=== PATIENT | female | born 1970 | race Caucasian/White ===

== ENCOUNTER 2020-05-12 23:25 | Emergency (ER) | payer BC ==
[2020-05-12] MEDS: Albuterol 0.083% 2.5 MG/3 ML Neb Soln NEB ONE (23:58)
--- NOTE | 2020-05-13 00:03 | EDM.PDOC ---
ED HPI GENERAL MEDICAL PROBLEM - General Chief Complaint: Respiratory Problem Stated Complaint: sob Time Seen by Provider: 05/12/20 23:40 Source of Information: Reports: Patient History Limitations: Reports: No Limitations - History of Present Illness INITIAL COMMENTS - FREE TEXT/NARRATIVE: Pt presents with feeling that she can't get a deep breathe. Started about 2230 this evening. She had been spraying insect spray onto her trees earlier in the evening about 2030 and it was drifting on to her. She states it was malathion. Poison control was contacted and they did not feel that it would cause any issues other than possible irritant and they recommended an albuterol treatment. She denies any fever, cough or pain. No other concerns. Has used this product previously without a problem but was spraying it overhead and it drifted onto her this time. Onset: Today Location: Reports: Chest - Related Data Allergies Allergy/AdvReac Type Severity Reaction Status Date / Time No Known Allergies Allergy Verified 05/12/20 23:28 Home Meds: Home Meds Levothyroxine 1 tab PO DAILY 05/12/20 [History] Social & Family History - Tobacco Use Smoking Status *Q: Never Smoker - Living Situation & Occupation Living situation: Reports: , with Family Occupation: Employed ED ROS GENERAL - Review of Systems Review Of Systems: See Below Constitutional: Denies: Fever, Chills, Weakness HEENT: Reports: No Symptoms Respiratory: Reports: Shortness of Breath (see HPI) Cardiovascular: Reports: No Symptoms Endocrine: Reports: No Symptoms GI/Abdominal: Reports: No Symptoms Musculoskeletal: Reports: No Symptoms Skin: Reports: Rash (has rash to her arms which she states that she got at the [facility] previously.) Neurological: Reports: No Symptoms ED EXAM, GENERAL - Physical Exam Exam: See Below Exam Limited By: No Limitations General Appearance: Alert, WD/WN, No Apparent Distress Ears: Normal External Exam, Normal Canal Nose: Normal Inspection Throat/Mouth: Normal Inspection, Normal Oropharynx Head: Atraumatic, Normocephalic Neck: Normal Inspection, Supple, Non-Tender Respiratory/Chest: No Respiratory Distress, Lungs Clear, Normal Breath Sounds, No Accessory Muscle Use, Chest Non-Tender Cardiovascular: Normal Peripheral Pulses, Regular Rate, Rhythm GI/Abdominal: Normal Bowel Sounds, Soft Extremities: Normal Inspection, No Pedal Edema Neurological: Alert, Oriented Skin Exam: Warm, Dry, Intact Course - Orders/Labs/Meds Orders: Active Orders 24 hr Category Date Time Status RT Aerosol Therapy [RC] ASDIRECTED Care 05/12/20 23:43 Active CBC WITH AUTO DIFF [HEME] Stat Lab 05/12/20 23:38 Ordered Meds: Medications Discontinued Medications Generic Name Dose Route Start Last Admin Trade Name Jamesq PRN Reason Stop Dose Admin Albuterol 2.5 mg 05/12/20 23:43 Proventil Neb Soln NEB 05/12/20 23:44 ONETIME ONE - Re-Assessments/Exams Free Text/Narrative Re-Assessment/Exam: 05/13/20 00:14 discussed lab results and recommendations from poison control. She does feel better after nebulizer treatment. Reassurance given. Sats remain 99% on RA Departure - Departure Time of Disposition: 00:14 Disposition: Home, Self-Care 01 Condition: Good Clinical Impression: SOB (shortness of breath) - Discharge Information *PRESCRIPTION DRUG MONITORING PROGRAM REVIEWED*: Not Applicable *COPY OF PRESCRIPTION DRUG MONITORING REPORT IN PATIENT VLADIMIR: Not Applicable Additional Instructions: recheck if not improved - Problem List & Annotations (1) SOB (shortness of breath) SNOMED Code(s): 161050242 Code(s): R06.02 - SHORTNESS OF BREATH Status: Acute - Problem List Review Problem List Initiated/Reviewed/Updated: Yes - My Orders Last 24 Hours: My Active Orders 05/12/20 23:38 CBC WITH AUTO DIFF [HEME] Stat 05/12/20 23:43 RT Aerosol Therapy [RC] ASDIRECTED - Assessment/Plan Last 24 Hours: My Active Orders 05/12/20 23:38 CBC WITH AUTO DIFF [HEME] Stat 05/12/20 23:43 RT Aerosol Therapy [RC] ASDIRECTED Assessment:: please refer to the nurses record for past medical, family and social history.
== END 2020-05-13 00:25 | disposition home or self-care (01) ==
LOC: CC.ED 23:25
DX: R06.02 Shortness of breath (principal)
CPT/HCPCS: 36415; 85025; 94640; 99285-25; J7613-GY

== ENCOUNTER 2021-11-18 10:23 | Emergency (ER) | payer BC ==
--- NOTE | 2021-11-18 11:24 | EDM.PDOC ---
ED HPI GENERAL MEDICAL PROBLEM - General Chief Complaint: General Stated Complaint: sore throat, chills Time Seen by Provider: 11/18/21 11:00 Source of Information: Reports: Patient History Limitations: Reports: No Limitations - History of Present Illness INITIAL COMMENTS - FREE TEXT/NARRATIVE: This is a 51-year-old female patient that presented with her son to the emergency department. Patient developed sore throat, ear pain, generalized aches that started this morning. States that she just is not feeling well. Denies fever but reports feeling chills. Mild symptoms started yesterday and worsened this morning. Unknown contact with anybody with influenza or Covid. Denies nausea vomiting or diarrhea. Onset: Today - Related Data Allergies Allergy/AdvReac Type Severity Reaction Status Date / Time No Known Allergies Allergy Verified 05/12/20 23:28 Home Meds: Home Meds Levothyroxine 1 tab PO DAILY 05/12/20 [History] Venlafaxine [Effexor] 25 mg PO DAILY 11/18/21 [History] Past Medical History Psychiatric History: Reports: Anxiety - Past Surgical History HEENT Surgical History: Reports: Tonsillectomy Female Surgical History: Reports: Breast Implant Endocrine Surgical History: Reports: Thyroidectomy Social & Family History - Family History Family Medical History: No Pertinent Family History - Tobacco Use Tobacco Use Status *Q: Never Tobacco User - Caffeine Use Caffeine Use: Reports: None - Recreational Drug Use Recreational Drug Use: No - Living Situation & Occupation Living situation: Reports: , with Family Occupation: Employed ED ROS GENERAL - Review of Systems Review Of Systems: See Below Constitutional: Reports: Chills. Denies: Fever HEENT: Reports: Throat Pain, Other (Congestion) Respiratory: Reports: Cough. Denies: Shortness of Breath Cardiovascular: Denies: Chest Pain, Dyspnea on Exertion, Lightheadedness Endocrine: Reports: Fatigue GI/Abdominal: Denies: Abdominal Pain, Diarrhea, Nausea, Vomiting : Reports: No Symptoms Musculoskeletal: Reports: No Symptoms Skin: Reports: No Symptoms Neurological: Reports: No Symptoms Psychiatric: Reports: No Symptoms Hematologic/Lymphatic: Reports: No Symptoms Immunologic: Reports: No Symptoms ED EXAM, GENERAL - Physical Exam Exam: See Below Exam Limited By: No Limitations General Appearance: Alert, WD/WN, Mild Distress Ears: Normal External Exam, Normal Canal, Hearing Grossly Normal, Normal TMs Nose: Normal Inspection Throat/Mouth: Normal Inspection, Normal Lips, Normal Oropharynx, Normal Voice, No Airway Compromise Head: Atraumatic Neck: Normal Inspection, Supple, Non-Tender Respiratory/Chest: No Respiratory Distress, Lungs Clear Cardiovascular: Regular Rate, Rhythm, No Gallop, No Murmur, No Rub GI/Abdominal: No Distention (Female) Exam: Deferred Rectal (Female) Exam: Deferred Extremities: Normal Inspection, No Pedal Edema Neurological: Alert, Oriented, Normal Gait, No Motor/Sensory Deficits Psychiatric: Normal Affect, Normal Mood Skin Exam: Warm, Dry, Intact, Normal Color Lymphatic: No Adenopathy Course - Vital Signs Last Recorded V/S: Last Vital Signs Temp 98 F 11/18/21 10:25 Pulse 110 H 11/18/21 10:25 Resp 16 11/18/21 10:25 BP 123/86 11/18/21 10:25 Pulse Ox 97 11/18/21 10:25 - Orders/Labs/Meds Orders: Active Orders 24 hr Category Date Time Status Isolation [COMM] Routine Oth 11/18/21 10:33 Active Labs: Laboratory Tests 11/18/21 Range/Units 10:33 SARS CoV-2 RNA Rapid PRATIBHA Positive H (NEGATIVE) - Re-Assessments/Exams Free Text/Narrative Re-Assessment/Exam: This is a 51-year-old female that presents to the emergency department with onset of sore throat and generally not feeling well. An influenza and Covid test were collected in the emergency department. Influenza test is negative Covid test is positive. Based on these positive findings discussed treatment options with the patient. Patient does not qualify for monoclonal antibodies. Discussed symptomatic management to be done at home. Patient should stay well- hydrated and drink plenty of fluids. Should stay moving at home when able between times of rest. May take Tylenol and ibuprofen as needed for fever or discomfort. May continue [id number] Mucinex or DayQuil if it is helping her symptoms. She should follow-up or return to the emergency department if she develops significant shortness of breath. She may also call if she has any questions or concerns. Departure - Departure Time of Disposition: 11:19 Disposition: Home, Self-Care 01 Condition: Good Clinical Impression: COVID-19 - Discharge Information *PRESCRIPTION DRUG MONITORING PROGRAM REVIEWED*: Not Applicable *COPY OF PRESCRIPTION DRUG MONITORING REPORT IN PATIENT VLADIMIR: Not Applicable Instructions: COVID-19 Frequently Asked Questions, Symptoms of COVID-19 - [facility] (01/16/2021), COVID-19: What to Do If You Are Sick- [facility] (02/08/2021) Referrals: Tamir Michel MD [Primary Care Provider] - Forms: ED Department Discharge Additional Instructions: 1. Lab test confirmed COVID-19. Based on guidelines should quarantine at home. Based on the health history you would not qualify for monoclonal antibodies. 2. Stay well-hydrated by drinking plenty of fluids. 3. May take Tylenol and ibuprofen for any fever or discomfort. 4. May continue [id number] Mucinex or DayQuil if you believe it is beneficial in helping your symptoms. 5. Follow-up or return to the ER if having significant shortness of breath. 6. You may call if you have any questions or concerns. Sepsis Event Note (ED) - Evaluation Sepsis Screening Result: No Definite Risk - Focused Exam Vital Signs: Vital Signs Temp Pulse Resp BP Pulse Ox 11/18/21 10:25 98 F 110 H 16 123/86 97 - My Orders Last 24 Hours: My Active Orders 11/18/21 10:33 Isolation [COMM] Routine - Assessment/Plan Last 24 Hours: My Active Orders 11/18/21 10:33 Isolation [COMM] Routine
== END 2021-11-18 11:39 | disposition home or self-care (01) ==
LOC: CC.ED 10:23
DX: U07.1 COVID-19 (principal); Z79.899 Other long term (current) drug therapy
CPT/HCPCS: 87804; 99283; U0002